=== PATIENT | female | born 1995 | race Caucasian/White ===

== ENCOUNTER 2016-11-29 11:00 | Emergency (ER) | payer OTHER ==
[~2016-11-29] VITALS: Ht 162.6 cm; Wt 53.6 kg
[2016-11-29 11:04] VITALS: Ht 162.6 cm; Wt 53.6 kg
[2016-11-29] MEDS ORDERED: VITACAP26 PO (11:15)
[2016-11-29] MEDS ORDERED: CYAN10004 PO (11:15)
[2016-11-29] MEDS ORDERED: CHOL100010 PO (11:15)
[2016-11-29] MEDS ORDERED: SODIUM CHLORIDE 0.9% 1000ML 1,000 ML IV STA (11:29)
[2016-11-29] MEDS ORDERED: IBUPROFEN 600 MG TAB PO STA (11:29)
[2016-11-29 12:12] LABS: BASO % 2.5 %; BASO ABS # 0.07 K/uL (0-0.2); COMPLETE YES; HEMATOCRIT 40.1 % (37-47); LYMPH % 20.1 %; LYMPH ABS # 0.56 K/uL (1.2-3.4); MEAN CELL VOLUME 91.8 fL (80-100); MEAN CORPUSCULAR HEMOGLOBIN 30.9 pg (25-34); MEAN CORPUSCULAR HGB CONC 33.7 g/dl (32-36); MONO % 14.7 %; NEUT % 62.7 %; PLATELET COUNT 127 K/uL (130-400); RED BLOOD COUNT 4.37 M/uL (4.2-5.4); WHITE BLOOD COUNT 2.79 K/uL (4.8-10.8)
[2016-11-29] MEDS ORDERED: IBUPROFEN 200 MG TAB PO STA (12:17)
[2016-11-29 12:34] LABS: BUN/CREATININE RATIO 8.5 (10-20); CREATININE 0.74 mg/dl (0.60-1.20); MAGNESIUM 2.1 mg/dl (1.8-2.4); POTASSIUM 3.8 mmol/L (3.5-5.1)
[2016-11-29 12:39] LABS: URINE APPEARANCE CLOUDY (CLEAR); URINE COLOR DK YELLOW; URINE NITRITE NEG (NEG); URINE PH 5.5 (4.5-7.5); URINE SPECIFIC GRAVITY 1.024 (1.000-1.030); UROBILINOGEN NEG (NEG); ZZUR CULT IF INDIC CLEAN CATCH YES
[2016-11-29 12:43] LABS: MANUAL MICROSCOPIC REQUIRED? YES; REVIEW REQ? NO; URINE BILIRUBIN NEG (NEG)
[2016-11-29 12:45] LABS: ALB/GLOB RATIO 0.9 (0.9-2); THYROID STIMULATING HORMONE 1.41 uIu/ml (0.300-4.500)
[2016-11-29 12:49] LABS: CALCIUM 8.3 mg/dl (8.5-10.1)
[2016-11-29 12:54] LABS: URINE BACTERIA 2+ (NEG)
[2016-11-29] MEDS ORDERED: SODIUM CHLORIDE 0.9% 500ML 500 ML IV STA (12:58)
--- NOTE | 2016-11-29 14:40 | Medical Consult ---
Consultation Date of Consultation: November 29, 2016. Attending Physician: Ev Novoa D.O. Reason for Consultation: Possible admission History of Present Illness This is a 21-year-old female with no past medical history presenting to the ER after approximately 4 days of waxing and waning fever, fatigue, generalized malaise, and with one episode of hypotension in the ER. At no point has the patient had a documented fever at home, but reports that the worst fever she had was on Tuesday night where she was extremely diaphoretic per her mother. Prior to coming here today the patient reports she was feeling extremely weak, and was slightly dizzy with standing. She had not eaten or drank much this morning. They had spoken with a tele-doc over the weekend who instructed them to use Motrin 200 mg every 6 hours as needed for fevers, and patient reports she had been doing this. She denies any symptoms of sore throat, sinus pressure /congestion, nasal drainage, upper respiratory infection, cough, abdominal pain , nausea, vomiting, diarrhea, constipation, dysuria, hematuria, lower back pain. She denies being around sick contacts although she does work in a [employer] and reports several of her coworkers had been dismissed from work due to illnesses. Currently the patient feels well, she has received a bolus of normal saline in the ER. Her Tmax=as 38.0 on arrival. Her lactic acid was elevated at 2.1. Her blood pressure is currently 101/64, although mother reports lower blood pressure runs in the family. The patient is currently on the sixth day of her menstrual cycle, UA shows red blood cells and positive esterase, 2-20 bacteriuria. The patient has no leukocytosis and all other labs are WNL. Past Medical/Surgical History No past medical history Social History Smoking Status: Never Smoker Smokeless Tobacco Use: No Alcohol Use: none Drug Use: none Marital Status: single Housing Status: lives with family Occupation Status: employed Allergies Coded Allergies: No Known Allergies (Unverified , 11/29/16) Review of Systems Constitutional: See history of present illness Eyes: No diplopia, no worsening or blurred vision ENT: normal hearing, no trouble swallowing Respiratory: No cough, sputum, dyspnea at rest or on exertion Cardiovascular: No chest pain, tightness or palpitations Abdomen: No pain, nausea, vomiting, diarrhea or constipation Musculoskeletal: No joint pain, calf pain, swelling Neurologic: No weakness, numbness/tingling, or balance problems Psychiatric: No anxiety or depression Skin: No rash or itch Physical Exam Date Time Temp Pulse Resp B/P Pulse Ox O2 Delivery O2 Flow Rate FiO2 11/29/16 12:16 89 16 93/62 99 Room Air 106/64 106/65 11/29/16 12:15 89 16 93/62 99 Room Air 11/29/16 11:04 38.0 99 17 100/59 99 Room Air General: awake, alert, no apparent distress Head: Normocephalic, atraumatic, no lymphadenopathy ENT: PERRL, EOMI, no pharyngeal exudate, mucous membranes moist Chest: Clear to auscultation, on room air, no adventitious breath sounds Cardiac: Regular rate and rhythm, no murmur, no JVD, normal peripheral pulses, good capillary refill Abdominal: NABS x 4 quadrants, soft, nontender to palpation, no rebound, guarding or tenderness Extremities: Normal inspection, no peripheral edema or erythema, calfs nontender to palpation Psych: Normal mood and affect Neuro: AAO x 3, strength intact bilaterally and related 5/5, no motor deficits, speech is clear, no peripheral sensory deficits Laboratory Results Last 24 Hours Test 11/29/16 11:29 11/29/16 11:30 11/29/16 11:40 11/29/16 11:45 Urine Test NEG Urine Color DK YELLOW Urine Appearance CLOUDY Urine pH 5.5 Urine Specific [place] 1.024 Urine Protein TRACE Urine Glucose (UA) NEG Urine Ketones TRACE Urine Occult Blood 3+ Urine Nitrite NEG Urine Bilirubin NEG Urine Urobilinogen NEG Urine Leukocyte Esterase SMALL Urine RBC (Auto) /hpf Urine Hyaline Casts (Auto) /lpf Urine RBC 10-30 /hpf Urine WBC 5-10 /hpf Urine Epithelial Cells >30 /lpf Urine Bacteria 2+ Urine Pathogenic Casts /lpf Urine Yeast (Auto) Lactic Acid Level 2.1 mmol/L Influenza Type A Antigen Neg for Influ A Influenza Type B Antigen Neg for Influ B White Blood Count 2.79 K/uL Red Blood Count 4.37 M/uL Hemoglobin 13.5 g/dL Hematocrit 40.1 % Mean Corpuscular Volume 91.8 fL Mean Corpuscular Hemoglobin 30.9 pg Mean Corpuscular Hemoglobin Concent 33.7 g/dl Platelet Count 127 K/uL Mean Platelet Volume 11.0 fL Neutrophils (%) (Auto) 62.7 % Lymphocytes (%) (Auto) 20.1 % Monocytes (%) (Auto) 14.7 % Eosinophils (%) (Auto) 0.0 % Basophils (%) (Auto) 2.5 % Neutrophils # (Auto) 1.75 K/uL Lymphocytes # (Auto) 0.56 K/uL Monocytes # (Auto) 0.41 K/uL Eosinophils # (Auto) 0.00 K/uL Basophils # (Auto) 0.07 K/uL RDW Standard Deviation 44.5 fL RDW Coefficient of Variation 13.2 % Immature Granulocyte % (Auto) 0.0 % Immature Granulocyte # (Auto) 0.00 K/uL Sodium Level 137 mmol/L Potassium Level 3.8 mmol/L Chloride Level 104 mmol/L Carbon Dioxide Level 25 mmol/L Anion Gap 8.0 mmol/L Blood Urea Nitrogen 6 mg/dl Creatinine 0.74 mg/dl Est Creatinine Clear Calc Drug Dose 101.8 ml/min Estimated GFR () 134.2 Estimated GFR (Non- 115.8 BUN/Creatinine Ratio 8.5 Random Glucose 94 mg/dl Calcium Level 8.3 mg/dl Magnesium Level 2.1 mg/dl Total Bilirubin 0.3 mg/dl Aspartate Amino Transf (AST/SGOT) 22 U/L Alanine Aminotransferase (ALT/SGPT) 16 U/L Alkaline Phosphatase 33 U/L Total Protein 7.2 gm/dl Albumin 3.5 gm/dl Globulin 3.7 gm/dl Albumin/Globulin Ratio 0.9 Thyroid Stimulating Hormone (TSH) 1.410 uIu/ml Monoscreen NEG Assessment & Plan This is a 21-year-old female presenting to the ER with a Tmax=38.0, generalized fatigue, weakness and malaise. Viral illness - Likely that the patient has a viral illness with waxing and waning fevers, chills, generalized fatigue, weakness and malaise. No leukocytosis, afebrile currently.Serology was checked and influenza A and B are negative. Will screen was negative. Lactic acid upon arrival was 2.1 but this is anticipated with a viral infection, and likely worse with dehydration. - UA obtained and urine culture in process, we will have PCP follow the results. - Currently status post 1 L NSS administered in the ED. Patient was encouraged to continue drinking adequate amounts of fluids including water, Gatorade, herbal teas, and limiting the amounts of drinks with caffeine in them. She has been tolerating an oral intake without difficulty. - Would recommend alternating Tylenol 500 mg every 6 H and Motrin 200 mg every 6H for fevers and pain. - If patient feels worse, remains febrile or develops a focal symptom would recommend calling her PCP or coming back to the ER. - Discussion regarding plan of treatment was held with the patient and her mother who are in agreement with this. All their questions and concerns were answered Thank you for the consultation of this very pleasant young lady, please call with any questions or concerns. Reviewed: Pt Seen/Exam by Me History 21 y/o F with fever, chills, decreased PO intake over the last few days. PO has increased since yesterday, fewer fevers. Pt received IVF in the ED and feels much improved. Would like to go home if possible. No SOB. Specifically denies abn vaginal discharge, pain, itching, burning. She is having her period and this is a typical period for her. No neck pain or limited ROM, headache. Agree with HPI/ROS as noted. General Appearance: WD/WN, no apparent distress Neck: full range of motion Respiratory: lungs clear, normal breath sounds, no respiratory distress Cardiovascular: normal peripheral pulses, regular rate, rhythm Gastrointestinal: non tender, soft Extremities: non-tender, no pedal edema Neurologic/Psychiatric: alert, oriented x 3 Skin Characteristics: normal color, warm/dry Assessment/Plan Pt with likely viral syndrome and much improved s/p IVF WBC WNL, flu and mono neg UA noted Mom with hx of typically lower BP at baseline Asked if she could go to work tomorrow, advised against this CM to arrange f/u tomorrow with resident office Blood and urine cx pending
[2016-11-29 15:40] VITALS: BP 107/64; PULSE 78; TEMP 37.1; O2SAT 97
--- NOTE | 2016-11-29 15:41 | EMERGENCY ROOM VISIT NOTE ---
ED Visit Note First contact with patient: 11:13 I saw this patient in conjunction with Umang Fleming PA-C. The patient was feeling well just prior to discharge. She had been evaluated by the inpatient medicine team. Case management set the patient up for outpatient follow-up tomorrow with [facility] medicine at 10:30 AM for a recheck. I went over specific instructions for return here to the emergency department if symptoms worsened.
--- NOTE | 2016-11-29 22:13 | EMERGENCY ROOM VISIT NOTE ---
History First contact with patient: 11:13 Chief Complaint: FEVER Stated Complaint: FEVER X 4 DAYS, DIZZY, SLIGHT RINGING IN EARS, N History of Present Illness The patient is a 21 year old female who presents to the Emergency Room via private vehicle accompanied with complaints of "fever 4 days, dizzy, slight ringing in ears, nausea". The patient states that and Tuesday, she woke up with fevers and chills, and since then has had waxing and waning fevers. It was noted that she had a period of "unresponsiveness" and she had zoned out, and felt warm. She states that her father was asking her questions are talking to her and she did not respond. She drank water, and felt better. Her temperatures have ranged from 101F to 103F. She's been taking ibuprofen with good relief and diminished fever. She also has felt tired. She denies any fever today. her mother did speak with a telemedicine physician, who informed her that if her fever was above 100.3 tomorrow, which is today to bring her to the emergency department for evaluation. She also began with dizziness, and tinnitus today. She also has had what she describes a spotty vision today. There is been associated nausea with the dizziness. Her temperature was 100.9 this morning orally. She denies taking any ibuprofen or Tylenol today. There is associated diaphoresis. She denies any neck pain or stiffness, headache, vomiting, abdominal pain, sore throat, urinary symptoms. Review of Systems A complete 10-point Review of Systems was discussed with the patient, with pertinent positives and negatives listed in the History of Present Illness. All remaining Review of Systems questions can be considered negative unless otherwise specified. Past Medical/Surgical History Strep throat. Family History Heart disease, high blood pressure, cancer. Social History Smoking Status: Never Smoker Smokeless Tobacco Use: No Drug Use: none Marital Status: single Housing Status: lives with family Occupation Status: employed Social History: Patient lives at home with parents and siblings, denies alcohol and tobacco use. Current/Historical Medications Scheduled Cholecalciferol (Vitamin D), 1,000 UNITS PO DAILY Cyanocobalamin (Vitamin B-12 1000 Mcg), 1,000 MCG PO DAILY Vitamins C & E (Vitamin C), 1 TAB PO DAILY Allergies Coded Allergies: No Known Allergies (Unverified , 5/22/17) Physical Exam Vital Signs Date Time Temp Pulse Resp B/P Pulse Ox O2 Delivery O2 Flow Rate FiO2 11/29/16 15:40 37.1 78 16 107/64 97 11/29/16 14:51 37.1 11/29/16 14:50 37.1 78 16 107/64 97 Room Air 11/29/16 14:20 88 16 98 Room Air 11/29/16 12:16 89 16 93/62 99 Room Air 106/64 106/65 11/29/16 12:15 89 16 93/62 99 Room Air 11/29/16 11:04 38.0 99 17 100/59 99 Room Air Pain Rating (0-10): 0 Physical Exam VITAL SIGNS - Vital signs and nursing notes were reviewed. Patient is febrile at 38F, blood pressure 100/59, tachycardic at a rate of 99 bpm, and is saturating well on room air 99%. GENERAL -21-year-old female appearing her stated age who is in no acute distress. She is nontoxic in appearance. Communicates well with provider and answers questions appropriately. SKIN - Without rashes. No petechiae or meningeal rash. HEAD - NC/AT. EYES - PERRL with EOMI bilaterally. Sclera anicteric. Palpebral conjunctiva pink and moist with no injection noted. EARS - No deformities of external structures noted on gross examination bilaterally. No pain elicited with palpation of the tragus bilaterally. External auditory canals without discharge or otorrhea. Tympanic membranes pearly vargas without retraction or bulging. No fluid or purulent material visualized behind the TM. Handle of malleus, umbo, cone of light, pars tensa/ flaccid all easily visualized. NOSE - Midline and without cyanosis. No epistaxis or purulent drainage noted. Septum midline without deviation or septal hematoma noted. MOUTH/OROPHARYNX - Without perioral cyanosis. Buccal mucosa pink and moist and without leukoplakia. Tongue midline with equal elevation of palate bilaterally. No tonsillar hypertrophy, erythema, or exudates noted. Fair dentition noted. NECK - Neck with FROM. Supple to palpation. No lymphadenopathy noted. No nuchal rigidity. Negative Kernig. Negative Brudzinski. LUNGS - Chest wall symmetric without accessory muscle use, intercostals retractions, or central cyanosis. Normal vesicular breath sounds CTA B/L. No wheezes, rales, or rhonchi appreciated. CARDIAC - RRR with S1/S2. No murmur, rubs, or gallops appreciated. ABDOMEN - Abdominal contour without pulsations or visible masses. BS normoactive all four quadrants. No tenderness, palpable masses, hepatosplenomegaly, or ascites noted. EXTREMITIES - No clubbing or peripheral cyanosis. No pretibial edema present. She is neurovascularly intact no tremors. +5/5 strength noted in UE/LE bilaterally. NEUROLOGIC - Cranial nerves II through XII grossly intact. Sensory intact to light touch throughout. PSYCH - Pt is very pleasant and interacts well with examiner. Medical Decision & Procedures Laboratory Results 11/29/16 11:45 Red Blood Count 4.37, Mean Corpuscular Volume 91.8, Mean Corpuscular Hemoglobin 30.9, Mean Corpuscular Hemoglobin Concent 33.7, Mean Platelet Volume 11.0, Neutrophils (%) (Auto) 62.7, Lymphocytes (%) (Auto) 20.1, Monocytes (%) (Auto) 14.7, Eosinophils (%) (Auto) 0.0, Basophils (%) (Auto) 2.5, Neutrophils # (Auto ) 1.75, Lymphocytes # (Auto) 0.56, Monocytes # (Auto) 0.41, Eosinophils # (Auto ) 0.00, Basophils # (Auto) 0.07 11/29/16 11:45 Test 11/29/16 11:29 11/29/16 11:30 11/29/16 11:40 11/29/16 11:45 Urine Test NEG (NEG) Urine Color DK YELLOW Urine Appearance CLOUDY (CLEAR) Urine pH 5.5 (4.5-7.5) Urine Specific [place] 1.024 (1.000-1.030) Urine Protein TRACE (NEG) Urine Glucose (UA) NEG (NEG) Urine Ketones TRACE (NEG) Urine Occult Blood 3+ (NEG) Urine Nitrite NEG (NEG) Urine Bilirubin NEG (NEG) Urine Urobilinogen NEG (NEG) Urine Leukocyte Esterase SMALL (NEG) Urine RBC (Auto) /hpf (0-4) Urine Hyaline Casts (Auto) /lpf (0-5) Urine RBC 10-30 /hpf (0-4) Urine WBC 5-10 /hpf (0-5) Urine Epithelial Cells >30 /lpf (0-5) Urine Bacteria 2+ (NEG) Urine Pathogenic Casts /lpf (0) Urine Yeast (Auto) (NONE PRSENT) Lactic Acid Level 2.1 mmol/L (0.4-2.0) Influenza Type A Antigen Neg for Influ A (NEG) Influenza Type B Antigen Neg for Influ B (NEG) White Blood Count 2.79 K/uL (4.8-10.8) Red Blood Count 4.37 M/uL (4.2-5.4) Hemoglobin 13.5 g/dL (12.0-16.0) Hematocrit 40.1 % (37-47) Mean Corpuscular Volume 91.8 fL (80-100) Mean Corpuscular Hemoglobin 30.9 pg (25-34) Mean Corpuscular Hemoglobin Concent 33.7 g/dl (32-36) Platelet Count 127 K/uL (130-400) Mean Platelet Volume 11.0 fL (7.4-10.4) Neutrophils (%) (Auto) 62.7 % Lymphocytes (%) (Auto) 20.1 % Monocytes (%) (Auto) 14.7 % Eosinophils (%) (Auto) 0.0 % Basophils (%) (Auto) 2.5 % Neutrophils # (Auto) 1.75 K/uL (1.4-6.5) Lymphocytes # (Auto) 0.56 K/uL (1.2-3.4) Monocytes # (Auto) 0.41 K/uL (0.11-0.59) Eosinophils # (Auto) 0.00 K/uL (0-0.5) Basophils # (Auto) 0.07 K/uL (0-0.2) RDW Standard Deviation 44.5 fL (36.4-46.3) RDW Coefficient of Variation 13.2 % (11.5-14.5) Immature Granulocyte % (Auto) 0.0 % Immature Granulocyte # (Auto) 0.00 K/uL (0.00-0.02) Anion Gap 8.0 mmol/L (3-11) Est Creatinine Clear Calc Drug Dose 101.8 ml/min Estimated GFR () 134.2 Estimated GFR (Non- 115.8 BUN/Creatinine Ratio 8.5 (10-20) Calcium Level 8.3 mg/dl (8.5-10.1) Magnesium Level 2.1 mg/dl (1.8-2.4) Total Bilirubin 0.3 mg/dl (0.2-1) Aspartate Amino Transf (AST/SGOT) 22 U/L (15-37) Alanine Aminotransferase (ALT/SGPT) 16 U/L (12-78) Alkaline Phosphatase 33 U/L (45-117) Total Protein 7.2 gm/dl (6.4-8.2) Albumin 3.5 gm/dl (3.4-5.0) Globulin 3.7 gm/dl (2.5-4.0) Albumin/Globulin Ratio 0.9 (0.9-2) Thyroid Stimulating Hormone (TSH) 1.410 uIu/ml (0.300-4.500) Monoscreen NEG (NEG) Medications Administered Medications (Trade) Dose Ordered Sig/Harris Route Start Time Stop Time Status Last Admin Dose Admin Sodium Chloride (Nss 1000ml) 1,000 ml @ 999 mls/hr Q1H1M STAT IV 11/29/16 11:29 11/29/16 12:29 DC 11/29/16 11:29 999 MLS/HR Ibuprofen (Motrin Tab) 600 mg NOW STAT PO 11/29/16 11:29 11/29/16 11:33 DC 11/29/16 12:04 600 MG Ibuprofen 200 mg 200 mg NOW STAT PO 11/29/16 12:17 11/29/16 12:18 DC 11/29/16 12:40 200 MG Sodium Chloride (Nss 500ml) 500 ml @ 500 mls/hr Q1H STAT IV 11/29/16 12:58 11/29/16 13:57 DC 11/29/16 12:58 500 MLS/HR Medical Decision Patient was seen and evaluated as above. After obtaining a thorough history and physical examination IV access was initiated above workup was performed. Patient presents with what is likely a viral illness, and is nontoxic on examination. She indicates well without difficulty. Her vital signs are stable. CBC reveals a decreased white blood cell count 2.79, no anemia noted. Electrolytes within normal limits. BUN low at 6. Lactic acid at 2.1. Calcium low at 8.3, alkaline phosphatase low at 33. TSH within normal limits. Urine does reveal trace protein, trace ketones, 3+ occult blood, small amount of esterase, 10-20 red blood cells, 5-10 white blood cells, greater than 30 epithelial cells, and 2+ urine bacteria. Urine test negative. She is currently meant straining. No UTI symptoms based upon subjective examination. No objective findings. No CVA tenderness. Flu was negative. Patient was hydrated with 1 L of normal saline, followed by 500 mL's. This was bolused. She was also negative for mono. She was given 600 milligrams of ibuprofen. She declined this noting that it was too large of a dose. She was then given 200 mg. She tolerated this well. She is reevaluated and her temperature was 37.4. She clinically has appeared well throughout her stay. I suspect the lactic acidosis and symptoms are likely viral in etiology. I did discuss the case with my attending, the patient began to be hypotensive despite fluids, and was febrile as well as tachycardic. She clinically meets diagnosis of SIRS. Because of this, and the unresponsive episode and symptomatically hypotension I do believe it is reasonable for admission. I discussed the case with the hospitalist team who evaluated the patient. The patient felt that she could be discharged home. I do believe this is reasonable. She was discharged home by my attending. I also was able talk with the patient prior to discharge. Patient was provided an appointment tomorrow with her family doctor to follow-up with. She was educated upon worrisome symptoms which to return, had questions prior to discharge and was discharged home in good condition. In evaluation treatment this patient following differential diagnoses were entertained: Viral URI, viral etiology, meningitis, pneumonia, UTI, pyelonephritis, among others. Impression Primary Impression: Fever Departure Information Dispostion Home / Self-Care Condition GOOD Referrals No Doctor, Assigned (PCP) Forms HOME CARE DOCUMENTATION FORM, IMPORTANT VISIT INFORMATION Patient Instructions Fever - [facility], [facility], ED Fever Unconf Cause Additional Instructions Rest. You may use Motrin for fever control. Follow up tomorrow at your appointment for a recheck. Return to the ER if symptoms worsen.
== END 2016-11-29 16:02 | disposition home or self-care (01) ==
LOC: C.EDB 11:01 → C.EDA 16:02
DX: R50.9 Fever, unspecified (principal); Z82.49 Family history of ischemic heart disease and other diseases of the circulatory system